=== PATIENT | female | born 1970 | race Caucasian/White ===

== ENCOUNTER 2016-07-03 14:13 | Emergency (ER) | payer OTHER ==
[2016-07-03 14:28] VITALS: BMI 31.0
[2016-07-03] MEDS ORDERED: SODIUM CHLORIDE 1,000 ML IV STA (16:26)
[2016-07-03 17:23] LABS: BASOPHIL 0.8 % (0-2.0); MCH 31.7 pg (25.7-33.7); MCHC 33.9 g/dl (32.0-36.0); MEAN CELL VOLUME 93.5 fl (80-96); MEAN PLT VOLUME 9.5 fl (7.5-11.1); PLATELET COUNT 344 K/MM3 (134-434); RDW 12.4 % (11.6-15.6); WHITE BLOOD COUNT 11.3 K/mm3 (4.0-10.0)
[2016-07-03 17:49] LABS: URINE APPEARANCE SLCLOUDY; URINE BILIRUBIN NEGATIVE (NEGATIVE); URINE BLOOD NEGATIVE (NEGATIVE); URINE COLOR YELLOW; URINE GLUCOSE (UA) 2+ (NEGATIVE); URINE KETONE NEGATIVE (NEGATIVE); URINE LEUK ESTERASE NEGATIVE (NEGATIVE); URINE NITRITE NEGATIVE (NEGATIVE); URINE PROTEIN NEGATIVE (NEGATIVE); URINE UROBILINOGEN NEGATIVE E.U./dl (0.2-1.0)
[2016-07-03 18:01] LABS: ANION GAP 6 (8-16); CALCIUM 9.4 mg/dL (8.5-10.1); CO2 30 mmol/L (21-32); CREATININE 0.7 mg/dL (0.55-1.02); GLUCOSE,RANDOM 102 mg/dL (74-106); SGOT/AST 21 U/L (15-37); SGPT/ALT 31 U/L (12-78)
[2016-07-03 18:03] LABS: ALK PHOS 75 U/L (45-117); BILIRUBIN,TOTAL 0.4 mg/dL (0.2-1.0); TOT PROT 7.4 g/dl (6.4-8.2)
--- NOTE | 2016-07-03 18:06 | PDOC ---
History of Present Illness - General Chief Complaint: Pain Stated Complaint: ABD PAIN, NAUSEA Time Seen by Provider: 07/03/16 16:28 History Source: Patient Exam Limitations: No Limitations - History of Present Illness Initial Comments: 07/03/16 17:33 HPI: This 46 year old female presents with c/o RLQ abd pain that apparently has been going on and off for one year. She states that she is having worsening pain since friday. She had a hysterectomy due to fibroids, left ovarian removed due to cysts and now she's developing right side of pain without fever, n, v, d. Chief Compliant:RLQ pain PMH: fibroids, ovarian cysts, PALA FH: Pt has not recently traveled outside the country in the last 30 days. Pt has not been in contact with people who have traveled out of the country, in contact with people who have been ill with fever, n, v, d. SH: smoking use: NONE illicit drug use: NONE alcohol use: NONE employment/educational status: sexual history: PSH: hysterectomy, left oopherectomy Home med use noted on AUG Allergies:PCN Immunizations: PCP: Dr. Barnett Past History - Past Medical History Allergies/Adverse Reactions: Allergies Allergy/AdvReac Type Severity Reaction Status Date / Time Penicillins Allergy Difficulty Verified 07/03/16 14:28 Breathing Diabetes: Yes HTN: Yes Other medical history: DEAF BOTH EARS--FLORENTIN HEARING AIDS - Surgical History Cholecystectomy: Yes - Psycho/Social/Smoking Cessation Hx Anxiety: No Suicidal Ideation: No Smoking History: Never smoked Hx Alcohol Use: No Drug/Substance Use Hx: No Substance Use Type: None Review of Systems - Review of Systems Able to Perform ROS?: Yes Comments:: 07/03/16 18:06 General statement: "I have worsening pain in the Right side of abd" She is crying. Hematology: neg history of bleeding/blood thinners Skin: Neg for lesions, rash, bruising. HEENT: Neg symptoms Respiratory: Neg SOB or difficulty in breathing Cardiac: Neg chest pain GI: + right lower quad pain, without n/v : Neg problems on voiding MS: Neg for joint pain/stiffness, no edema Neuro: Neg for LOC, weakness, Endocrine: Neg for excess thirst/hunger, cold/heat intolerance, excess sweating Allergies: + for allergies *Physical Exam - Vital Signs Last Vital Signs Temp Pulse Resp BP Pulse Ox 98.2 F 77 20 144/79 98 07/03/16 14:25 07/03/16 14:25 07/03/16 14:25 07/03/16 14:25 07/03/16 14:25 - Physical Exam Comments: 07/03/16 18:07 General Appearance: Iele-fcwf-scd female who appears to be uncomfortable due to pain to the right lower quadrant sitting up crying V/S: hemodynamically stable, afebrile Skin: WNL of pt's skin color, no signs of pallor, mottling, cyanosis Head:symmetrical Eyes: EOM's intact, PERRLA Ears: denies pain Nose: patent Throat: lips, teeth, gums, tongue, buccal mucos pink and moist Lungs: Chest symmetry equal. Cap refill <3 seconds. Lung sounds clear Cardiac: PMI at R 4MCL space, pos S1 and S2, regular rate. Abdomen: Soft, round, positive right lower quadrant tender : Not observed Muscularskeletal: Gait steady, ambulated in to ER, no edema +PMS Neuro: AAOx3, cognitively intact, speech clear and appropriate. ED Treatment Course - LABORATORY CBC & Chemistry Diagram: 07/03/16 17:05 07/03/16 17:05 - RADIOLOGY Radiology Studies Ordered: Category Date Time Status PELVIC / BLADDER US [US] Stat Ultrasound 07/03/16 16:26 Ordered TRANSVAGINAL ULTRASOUND US [US] Stat Ultrasound 07/03/16 16:51 Ordered - Medications Given in the ED: ED Medications Discontinued Medications Generic Name Dose Route Start Last Admin Trade Name Hernánq PRN Reason Stop Dose Admin Sodium Chloride 1,000 mls @ 1,000 mls/hr 07/03/16 16:26 07/03/16 17:10 Normal Saline - IV 07/03/16 17:25 1,000 mls/hr ASDIR STA Administration Medical Decision Making - Medical Decision Making 07/03/16 18:08 Pt initially seen and examined. She is complaining of right lower quadrant abdominal pain. A/P suggestive of right ovarian cyst, torsion 1. labs 2. pain meds 3. urine 4. transvaginal and pelvic u/s 07/03/16 18:16 I am signing this patient out to my colleague: DEMARIO Hernandez In brief, this patient is being seen in the ED for a chief complaint of: right lower quad pain possible ovarian cyst vs, ? appendix, colic, I have completed the initial assessment interview note and have ordered: transvaginal and pelvic u/s, ua, IVF and pain meds. Please call the PCP: Dr. Barnett Plan for disposition is as follows: pending *DC/Admit/Observation/Transfer Diagnosis at time of Disposition: Abdominal pain
[2016-07-03] MEDS ORDERED: OXYCODONE/APAP 5/325MG COMBO TABLET PO ONE (18:09)
[2016-07-03] MEDS ORDERED: OXYCODONE/APAP 5/325MG COMBO TABLET ONE (18:35)
[2016-07-03] MEDS ORDERED: HEMOQUE TEST 1 EACH EACH ONE (18:36)
--- NOTE | 2016-07-03 19:13 | PDOC ---
*Physical Exam - Vital Signs Last Vital Signs Temp Pulse Resp BP Pulse Ox 98.2 F 77 20 144/79 98 07/03/16 14:25 07/03/16 14:25 07/03/16 14:25 07/03/16 14:25 07/03/16 14:25 - Physical Exam Comments: 07/03/16 19:12 Sign-out received from outgoing ER provider Bennett. Pt interviewed and examined. Ancillary studies reviewed. Awaiting transvaginal and pelvic ultrasound results, labs. ED Treatment Course - LABORATORY CBC & Chemistry Diagram: 07/03/16 17:05 07/03/16 17:05 - ADDITIONAL ORDERS Additional order review: Laboratory Results 07/03/16 07/03/16 07/03/16 18:40 17:05 17:05 Sodium 136 Potassium 3.7 Chloride 100 Carbon Dioxide 30 Anion Gap 6 L BUN 20 H Creatinine 0.7 Creat Clearance w eGFR > 60 POC Glucometer 104.84139 Random Glucose 102 Calcium 9.4 Total Bilirubin 0.4 AST 21 ALT 31 Alkaline Phosphatase 75 Total Protein 7.4 Albumin 4.0 Lipase 73 Urine Color Yellow Urine Appearance Slcloudy Urine pH 5.0 Ur Specific [place] 1.030 Urine Protein Negative Urine Glucose (UA) 2+ H Urine Ketones Negative Urine Blood Negative Urine Nitrite Negative Urine Bilirubin Negative Urine Urobilinogen Negative Ur Leukocyte Esterase Negative 07/03/16 07/03/16 18:40 17:05 RBC 4.20 MCV 93.5 MCHC 33.9 RDW 12.4 MPV 9.5 Neutrophils % 53.0 Lymphocytes % 38.5 Monocytes % 6.7 Eosinophils % 1.0 Basophils % 0.8 POC Glucometer 104.96750 - Medications Given in the ED: ED Medications Discontinued Medications Generic Name Dose Route Start Last Admin Trade Name Freq PRN Reason Stop Dose Admin Sodium Chloride 1,000 mls @ 1,000 mls/hr 07/03/16 16:26 07/03/16 17:10 Normal Saline - IV 07/03/16 17:25 1,000 mls/hr ASDIR STA Administration Oxycodone/Acetaminophen 1 combo 07/03/16 18:09 07/03/16 18:38 Percocet 5/325 - PO 07/03/16 18:10 1 combo ONCE ONE Administration *DC/Admit/Observation/Transfer Diagnosis at time of Disposition: Abdominal pain Qualifiers: Abdominal location: right lower quadrant Qualified Code(s): R10.31 - Right lower quadrant pain Cyst of ovary Qualifiers: Laterality: right Qualified Code(s): N83.20 - Unspecified ovarian cysts - Discharge Dispostion Disposition: HOME Condition at time of disposition: Stable - Prescriptions Prescriptions: Ibuprofen 800 mg PO TID PRN #21 tablet PRN Reason: Pain - Referrals Referrals: Stanislaw Barnett MD [Primary Care Provider] - - Patient Instructions Printed Discharge Instructions: DI for Ovarian Cyst Additional Instructions: Please take medication as prescribed. As discussed, please follow up with Dr. Barnett tomorrow morning. If you experience sudden severe pain, vaginal bleeding , nausea, vomiting, diarrhea, fever, chills, or any new or worsening symptoms, please return to the ER. - Post Discharge Activity
[2016-07-03 20:32] VITALS: BP 137/74; PULSE 88; TEMP 98.6
== END 2016-07-03 20:31 | disposition home or self-care (01) ==
LOC: JER 14:13
PROC: 3E0F7GC Introduction of Other Therapeutic Substance into Respiratory Tract, Via Natural or Artificial Opening (ICD-10-PCS; principal; 2016-07-03)
DX: R10.9 Unspecified abdominal pain (principal)
CPT/HCPCS: 36415; 76830-TC; 76856-TC; 80053; 81003; 83690; 85025; 99283-25

== ENCOUNTER 2016-07-04 16:27 | Emergency (ER) | payer OTHER ==
[2016-07-04 16:41] VITALS: BMI 31.0
[2016-07-04] MEDS ORDERED: ONDANSETRON 4 MG/2 ML VIAL IVPB ONE (19:34)
[2016-07-04] MEDS ORDERED: morphine CARPU-JECT 4 MG/1 ML DISP.SYRIN IVPUSH ONE (19:34)
--- NOTE | 2016-07-04 19:36 | PDOC ---
History of Present Illness - General Chief Complaint: Pain Stated Complaint: PCP SENT/CT SCAN Time Seen by Provider: 07/04/16 19:03 History Source: Patient, Significant Other Exam Limitations: Other (Hearing impairment) - History of Present Illness Travel History: No Initial Comments: 07/04/16 21:34 46yo Female patient presents to ED c/o RLQ abd pain. Patient states she was seen here in this ED for same pain, ultrasound done to r/o ruptured ovarion cyst or torsion. Patient f/u with PCP who requested that she return to ED to r/ o appendicitis. Patient reports nausea & vomiting with upper back pain that began last week. Denies hematuria, fever, vaginal bleeding, CP, diff breathing, or any other complaints at this time. Timing/Duration: reports: getting worse Quality: reports: moderate Abdominal Pain Onset Location: reports: RLQ Pain Radiation: reports: back Activities at Onset: reports: none Treatment Prior to Arrive: worse with: analgesics, antacids, cold pack, heat, laxative, enema, other Aggravating Factors: worse with: None, Defecation, Eating, Emotional upset, Exertion, [place], Movement, Voiding, Change in position Alleviating Factors: worse with: None, Belching, Shallow Breathing, Defecation, Eating, Holding Breath, Passing Gas, Change in Position, Rest, Voiding, Vomiting Past History - Travel Traveled outside of the country in the last 30 days: No Close contact w/someone who was outside of country & ill: No - Past Medical History Allergies/Adverse Reactions: Allergies Allergy/AdvReac Type Severity Reaction Status Date / Time Penicillins Allergy Difficulty Verified 07/04/16 16:41 Breathing Home Medications: Ambulatory Orders Ibuprofen 800 mg PO TID PRN #21 tablet 07/03/16 Oxycodone HCl/Acetaminophen [Percocet 5-325 mg Tablet] 1 tab PO Q6H PRN #20 tablet MDD 4 tabs 07/05/16 CVA: Yes Diabetes: Yes HTN: Yes - Surgical History Cholecystectomy: Yes - Psycho/Social/Smoking Cessation Hx Anxiety: No Suicidal Ideation: No Smoking History: Never smoked Information on smoking cessation initiated: No Hx Alcohol Use: No Drug/Substance Use Hx: No Substance Use Type: None Abd/GI Specific PMHX - Complaint Specific PMHX Colitis: No Diverticulitis: No Gall Bladder Disease: No GERD: No Hepatitis: No Irritable Bowel Synd (IBS): No Pancreatitis: No GI Ulcer Disease: No Review of Systems - Review of Systems Able to Perform ROS?: Yes Is the patient limited Vincentian proficient: No Constitutional: No: Chills, Fever HEENTM: No: Nose Congestion Respiratory: No: Cough, Shortness of Breath, Stridor, Wheezing Cardiac (ROS): No: Chest Pain, Edema, Palpitations, Chest Tightness ABD/GI: Yes: Nausea, Vomiting, Other (RLQ Abd Pain). No: Constipated, Diarrhea : Yes: Frequency, Urgency. No: Burning, Dysuria, Discharge Musculoskeletal: Yes: Back Pain. No: Muscle Pain Integumentary: No: Bruising, Erythema, Rash Neurological: No: Headache, Seizure, Ataxia, Dizziness All Other Systems: Reviewed and Negative *Physical Exam - Vital Signs Last Vital Signs Temp Pulse Resp BP Pulse Ox 98 F 80 18 102/61 100 07/04/16 16:36 07/04/16 16:36 07/04/16 16:36 07/04/16 16:36 07/04/16 16:36 - Physical Exam General Appearance: Yes: Nourished, Appropriately Dressed, Mild Distress HEENT: positive: EOMI, JOSEPH, Normal ENT Inspection, Normal Voice, Symmetrical, Pharynx Normal Neck: positive: Trachea midline, Supple. negative: Stridor Respiratory/Chest: positive: Lungs Clear, Normal Breath Sounds. negative: Respiratory Distress, Accessory Muscle Use, Labored Respiration Cardiovascular: positive: Regular Rhythm, Regular Rate. negative: Bradycardia, Tachycardia Gastrointestinal/Abdominal: positive: Tender (RLQ), Soft, Decreased BS, Tenderness. negative: Distended, Guarding, Rebound Lymphatic: negative: Adenopathy Musculoskeletal: positive: Normal Inspection. negative: CVA Tenderness Extremity: positive: Normal Capillary Refill, Normal Inspection, Normal Range of Motion Integumentary: positive: Normal Color, Dry, Warm. negative: Cyanotic, Pale, Cold, Clammy Neurologic: positive: technician biological health II-XII NML intact, Fully Oriented, Alert, Normal Mood/ Affect, Normal Response, Motor Strength 5/5 ED Treatment Course - LABORATORY CBC & Chemistry Diagram: 07/04/16 19:02 07/04/16 19:02 - RADIOLOGY Radiology Studies Ordered: Category Date Time Status ABDOMEN & PELVIS CT WITH CONTR [CT] Stat CT Scan 07/04/16 19:34 Ordered *DC/Admit/Observation/Transfer Diagnosis at time of Disposition: Ovarian cyst Qualifiers: Laterality: right Qualified Code(s): N83.20 - Unspecified ovarian cysts Abdominal pain Qualifiers: Abdominal location: right lower quadrant Qualified Code(s): R10.31 - Right lower quadrant pain - Discharge Dispostion Disposition: HOME Condition at time of disposition: Good Admit: No - Prescriptions Prescriptions: Oxycodone HCl/Acetaminophen [Percocet 5-325 mg Tablet] 1 tab PO Q6H PRN #20 tablet MDD 4 tabs PRN Reason: Severe Pain - Patient Instructions Printed Discharge Instructions: Ovarian Cyst Removal -- Open Surgery, Ovarian Cyst Additional Instructions: FOLLOW UP WITH YOUR ASSISTANT PROFESSOR OF SPANISH OR PCP. CALL TO SCHEDULE APPOINTMENT DISCUSSED. TAKE MEDICATIONS PRESCRIBED. DO NOT DRIVE, DRINK ALCOHOL, OR OPERATE HEAVY MACHINERY WHILE TAKING PERCOCET. CONTINUE MOTRIN USE. Print Language: TURKISH - Post Discharge Activity Work/School Note: Back to Work
[2016-07-04] MEDS ORDERED: ONDANSETRON 4 MG/2 ML VIAL ONE (19:40)
[2016-07-04] MEDS ORDERED: morphine CARPU-JECT 4 MG/1 ML DISP.SYRIN ONE (19:40)
[2016-07-04 20:08] LABS: BASOPHIL 0.7 % (0-2.0); EOSINOPHIL 0.9 % (0-4.5); MCH 31.4 pg (25.7-33.7); MCHC 33.5 g/dl (32.0-36.0); MEAN CELL VOLUME 93.9 fl (80-96); MEAN PLT VOLUME 10.4 fl (7.5-11.1); NEUTROPHILS 48.5 % (42.8-82.8); PLATELET COUNT 309 K/MM3 (134-434); RDW 12.8 % (11.6-15.6); WHITE BLOOD COUNT 10.9 K/mm3 (4.0-10.0)
[2016-07-04 20:27] LABS: ALBUMIN 3.9 g/dl (3.4-5.0); ALK PHOS 76 U/L (45-117); ANION GAP 7 (8-16); BILIRUBIN,TOTAL 0.2 mg/dL (0.2-1.0); CALCIUM 9.5 mg/dL (8.5-10.1); CO2 32 mmol/L (21-32); CREATININE 0.7 mg/dL (0.55-1.02); GLUCOSE,RANDOM 97 mg/dL (74-106); SGOT/AST 19 U/L (15-37); SGPT/ALT 31 U/L (12-78); TOT PROT 7.4 g/dl (6.4-8.2)
--- NOTE | 2016-07-04 20:28 | PDOC ---
*Physical Exam - Vital Signs Last Vital Signs Temp Pulse Resp BP Pulse Ox 98 F 80 18 102/61 100 07/04/16 16:36 07/04/16 16:36 07/04/16 16:36 07/04/16 16:36 07/04/16 16:36 - Physical Exam Comments: 07/04/16 20:27 The patient was examined by DEMARIO Velasquez under my direct supervision. I personally evaluated the patient. I concur with the above findings and the plan of care. ED Treatment Course - LABORATORY CBC & Chemistry Diagram: 07/04/16 19:02 07/04/16 19:02 - ADDITIONAL ORDERS Additional order review: Laboratory Results 07/04/16 19:05 Urine HCG, Qual Negative 07/04/16 19:02 RBC 4.25 MCV 93.9 MCHC 33.5 RDW 12.8 MPV 10.4 Neutrophils % 48.5 Lymphocytes % 42.5 H Monocytes % 7.4 Eosinophils % 0.9 Basophils % 0.7 - Medications Given in the ED: ED Medications Discontinued Medications Generic Name Dose Route Start Last Admin Trade Name Rosemary PRN Reason Stop Dose Admin Morphine Sulfate 4 mg 07/04/16 19:34 07/04/16 19:46 Morphine Injection - IVPUSH 07/04/16 19:35 4 mg ONCE ONE Administration Ondansetron HCl 4 mg 07/04/16 19:34 07/04/16 19:46 Zofran Injection IVPB 07/04/16 19:35 4 mg ONCE ONE Administration *DC/Admit/Observation/Transfer Diagnosis at time of Disposition: Ovarian cyst, Abdominal pain - Discharge Dispostion Disposition: HOME Condition at time of disposition: Stable - Prescriptions Prescriptions: Oxycodone HCl/Acetaminophen [Percocet 5-325 mg Tablet] 1 tab PO Q6H PRN #20 tablet MDD 4 tabs PRN Reason: Severe Pain - Referrals Referrals: Birgit Easley MD [Primary Care Provider] - - Patient Instructions Printed Discharge Instructions: Ovarian Cyst, Ovarian Cyst Removal -- Open Surgery Additional Instructions: FOLLOW UP WITH YOUR FIREARMS EXPERT OR PCP. CALL TO SCHEDULE APPOINTMENT DISCUSSED. TAKE MEDICATIONS PRESCRIBED. DO NOT DRIVE, DRINK ALCOHOL, OR OPERATE HEAVY MACHINERY WHILE TAKING PERCOCET. CONTINUE MOTRIN USE. Print Language: IRISH - Post Discharge Activity Work/School Note: Back to Work
[2016-07-04 21:04] LABS: URINE APPEARANCE CLOUDY; URINE BILIRUBIN NEGATIVE (NEGATIVE); URINE BLOOD NEGATIVE (NEGATIVE); URINE COLOR YELLOW; URINE GLUCOSE (UA) NEGATIVE (NEGATIVE); URINE KETONE TRACE (NEGATIVE); URINE LEUK ESTERASE NEGATIVE (NEGATIVE); URINE NITRITE NEGATIVE (NEGATIVE); URINE UROBILINOGEN NEGATIVE E.U./dl (0.2-1.0)
[2016-07-04 21:25] LABS: URINE PROTEIN 1+ (NEGATIVE)
[2016-07-04 21:40] LABS: URINE BACTERIA MODERATE /hpf (NONE SEEN); URINE MUCUS FEW; URINE RBC 4 /hpf (0-3); URINE WBC 3 /hpf (3-5)
[2016-07-05 00:32] VITALS: BP 131/77; PULSE 71; TEMP 97.5
--- NOTE | 2016-07-05 15:28 | EKG ---
Test Reason : Blood Pressure : / mmHG Vent. Rate : 061 BPM Atrial Rate : 061 BPM P-R Int : 146 ms QRS Dur : 078 ms QT Int : 456 ms P-R-T Axes : 037 -02 018 degrees QTc Int : 459 ms NORMAL SINUS RHYTHM CANNOT RULE OUT SEPTAL INFARCT , AGE UNDETERMINED Confirmed by MARY MORALES MD ([id number]) on 07/05/2016 3:28:13 PM Referred By: Confirmed By:MARY MORALES MD
== END 2016-07-05 00:33 | disposition home or self-care (01) ==
LOC: JER 16:27
PROC: 3E033NZ Introduction of Analgesics, Hypnotics, Sedatives into Peripheral Vein, Percutaneous Approach (ICD-10-PCS; principal; 2016-07-04)
PROC: 3E033GC Introduction of Other Therapeutic Substance into Peripheral Vein, Percutaneous Approach (ICD-10-PCS; 2016-07-04)
DX: N83.291 Other ovarian cyst, right side (principal); I10 Essential (primary) hypertension; E11.9 Type 2 diabetes mellitus without complications; Z86.73 Personal history of transient ischemic attack (TIA), and cerebral infarction without residual deficits
CPT/HCPCS: 36415; 74177-TC; 80053; 81003; 81015; 84703; 85025; 93005; 93010; 99283-25; Q9967

== ENCOUNTER 2016-07-29 12:30 | Day surgery (SDC) | payer OTHER ==
[2016-07-26 12:32] VITALS: BMI 31.0
[2016-07-29] MEDS ORDERED: BUPIVACAINE HCL/PF 0.5% (5MG/ML) 10 ML VIAL ONE (13:04)
[2016-07-29 13:40] LABS: INR 1.08 (0.82-1.09); PROTHROMBIN TIME (PATIENT) 11.9 SEC (9.98-11.88)
[2016-07-29 13:43] LABS: ACTIVATED PTT 35.7 SECONDS (26.9-34.4)
[2016-07-29] MEDS ORDERED: PROPOFOL 20 ML ONE (13:46)
[2016-07-29] MEDS ORDERED: ROCURONIUM BROMIDE 50 MG/5 ML VIAL ONE (13:46)
[2016-07-29] MEDS ORDERED: SUCCINYLCHOLINE CHLORIDE 200 MG/10 ML VIAL ONE (13:46)
[2016-07-29] MEDS ORDERED: LIDOCAINE HCL/PF 2% SDV 5ML VIAL ONE (13:46)
[2016-07-29] MEDS ORDERED: CLINDAMYCIN PHOSPHATE 600 MG/4 ML VIAL IVPB ONE (14:09)
[2016-07-29] MEDS ORDERED: METHYLENE BLUE 1% 10 MG/1 ML VIAL ONE (15:12)
[2016-07-29] MEDS ORDERED: METHYLENE BLUE 1% 10 MG/1 ML VIAL IVPUSH ONE (15:14)
[2016-07-29] MEDS ORDERED: GLYCOPYRROLATE 0.2 MG/1 ML VIAL ONE ×2 (16:21)
[2016-07-29] MEDS ORDERED: NEOSTIGMINE METHYLSULFATE 0.5 MG/ML - 10 ML MDV ONE (16:21)
[2016-07-29] MEDS ORDERED: CLINDAMYCIN PHOSPHATE 600 MG/4 ML VIAL ONE (16:21)
[2016-07-29] MEDS ORDERED: IBUPROFEN 800 MG/8 ML IJ IVPB PRN (16:33)
[2016-07-29] MEDS ORDERED: ONDANSETRON 4 MG/2 ML VIAL IVPB PRN (16:33)
[2016-07-29] MEDS ORDERED: oxyCODONE HCL 5 MG TABLET PO PRN ×2 (16:33→16:49)
[2016-07-29] MEDS ORDERED: IBUPROFEN 600 MG TABLET (FP) PO PRN (16:33)
--- NOTE | 2016-07-29 16:42 | HP ---
Past Medical History - Primary Care Physician PCP:: Bhargav Buenrostro (pelvic pain ) - Admission Chief Complaint: RLQ pain , RT ovarian cyst History of Present Illness: 46 yo f with hx of AMARILIS ,RSO c/o of severe RLQ pain, which has been worsen for past few month , sono showed complex RT ovarian cyst , pt has elected to have oophorectomty. risk of procedure including injury to bowel, bladder, ureter , vesselsanesthesia risk, post op pain and DVT, infection, bleeding, discussed, fully aware of all risks History Source: Patient Limitations to Obtaining History: No Limitations - Past Medical History Musculoskeletal: Yes: Other (lumbar, cervical discs) - Past Surgical History Hx Myomectomy: No Hx Transabdominal Cerclage: No - Smoking History Smoking history: Never smoked - Alcohol/Substance Use Hx Alcohol Use: Yes (OCCAS) - Social History History of Recent Travel: No Home Medications - Allergies Allergies/Adverse Reactions: Allergies Allergy/AdvReac Type Severity Reaction Status Date / Time Penicillins Allergy Difficulty Verified 07/29/16 13:05 Breathing - Home Medications Home Medications: Ambulatory Orders Insulin Glargine,Hum.rec.anlog [Lantus (nf)] 20 units SQ HS 07/26/16 Insulin Lispro [Humalog] 12 unit SQ TID 07/26/16 Tramadol HCl 50 mg PO PRN 07/26/16 Valsartan [Diovan] 40 mg PO DAILY 07/26/16 Review of Systems - Review of Systems Constitutional: reports: No Symptoms Eyes: reports: No Symptoms HENT: reports: No Symptoms Neck: reports: No Symptoms Cardiovascular: reports: No Symptoms Respiratory: reports: No Symptoms Gastrointestinal: reports: Abdominal Pain Endocrine: reports: No Symptoms Physical Exam-PRECISION DYER Vital Signs: Vital Signs Temperature 98.1 F 07/29/16 13:07 Pulse Rate 78 07/29/16 13:07 Respiratory Rate 16 07/29/16 13:07 Blood Pressure 134/90 07/29/16 13:07 O2 Sat by Pulse Oximetry (%) 98 07/29/16 13:07 Constitutional: Yes: Well Nourished, No Distress, Calm Eyes: Yes: WNL, Conjunctiva Clear, EOM Intact HENT: Yes: WNL, Atraumatic, Normocephalic Neck: Yes: WNL, Supple, Trachea Midline Cardiovascular: Yes: WNL, Regular Rate and Rhythm Respiratory: Yes: WNL, Regular, CTA Bilaterally Gastrointestinal: Yes: WNL ...Rectal Exam: Yes: WNL Renal/: Yes: WNL Vaginal Exam: Yes: Normal Cervix: Yes: Normal Uterus: Yes: Other (surgically removed) Adnexa: Tender: Right Breast(s): Yes: WNL Musculoskeletal: Yes: WNL Extremities: Yes: WNL Edema: No Integumentary: Yes: WNL Neurological: Yes: WNL, Alert, Oriented ...Motor Strength: WNL Psychiatric: Yes: WNL, Alert, Oriented Problem List - Problem (1) RLQ abdominal pain Code(s): R10.31 - RIGHT LOWER QUADRANT PAIN (2) Right ovarian cyst Code(s): N83.20 - UNSPECIFIED OVARIAN CYSTS * DO NOT USE * (3) Diabetes Code(s): E11.9 - TYPE 2 DIABETES MELLITUS WITHOUT COMPLICATIONS Qualifiers: Diabetes mellitus type: type 1 Assessment/Plan laproscopic RT oophorectomy, possible laparotomy, risks discussed, ulternative and no tx explained
[2016-07-29] MEDS ORDERED: ONDANSETRON 4 MG/2 ML VIAL IVPUSH PRN (16:49)
[2016-07-29] MEDS: ELECTROLYTE-148 SOLN 1,000 ML IV SCH (18:40)
[2016-07-29] MEDS ORDERED: ALPRAZolam 0.25 MG TABLET PO ONE (22:15)
[2016-07-29] MEDS ORDERED: INSULIN (NOVOLOG) ASPART 100 UNITS/ML 10ML VIAL ONE (23:59)
[2016-07-30] MEDS: INSULIN SLIDING SCALE (NOVOLOG) 1 VIAL SQ SCH ×4 (00:01→17:28)
[2016-07-30] MEDS: ELECTROLYTE-148 SOLN 1,000 ML IV SCH (03:05)
[2016-07-30] MEDS ORDERED: INSULIN (NOVOLOG) ASPART 100 UNITS/ML 10ML VIAL ONE (06:04)
[2016-07-30] MEDS: INSULIN (NOVOLOG) ASPART 100 UNITS/ML 10ML VIAL SQ SCH ×3 (08:51→17:28)
[2016-07-30] MEDS ORDERED: ALPRAZolam 0.25 MG TABLET PO SCH (10:00)
[2016-07-30] MEDS ORDERED: VALSARTAN 40 MG TABLET (FP) PO SCH (10:00)
[2016-07-30 13:47] LABS: BASOPHIL 0.7 % (0-2.0); EOSINOPHIL 0.2 % (0-4.5); MCH 31.4 pg (25.7-33.7); MCHC 33.9 g/dl (32.0-36.0); MEAN CELL VOLUME 92.8 fl (80-96); MEAN PLT VOLUME 9.6 fl (7.5-11.1); NEUTROPHILS 69.1 % (42.8-82.8); PLATELET COUNT 248 K/MM3 (134-434); RDW 12.2 % (11.6-15.6)
[2016-07-30 14:21] VITALS: BP 110/58; TEMP 98
[2016-07-30 14:45] LABS: CALCIUM 8.9 mg/dL (8.5-10.1); CREATININE 0.8 mg/dL (0.55-1.02)
--- NOTE | 2016-07-30 15:29 | EKG ---
Test Reason : Blood Pressure : / mmHG Vent. Rate : 064 BPM Atrial Rate : 064 BPM P-R Int : 148 ms QRS Dur : 084 ms QT Int : 428 ms P-R-T Axes : 038 005 072 degrees QTc Int : 441 ms NORMAL SINUS RHYTHM NORMAL ECG WHEN COMPARED WITH ECG OF 04-JUL-2016 20:29, LIKELY NO SIGNIFICANT CHANGES Confirmed by VIVIAN GALLEGO MD ([id number]) on 07/30/2016 3:29:20 PM Referred By: Bhargav Buenrostro Confirmed By:VIVIAN GALLEGO MD
[2016-07-30 18:07] VITALS: PULSE 72
--- NOTE | 2016-07-30 19:56 | OP ---
DATE OF OPERATION: 07/29/2016 PREOPERATIVE DIAGNOSIS: Right ovarian cyst, pelvic pain. POSTOPERATIVE DIAGNOSIS: Right ovarian cyst, pelvic pain. PROCEDURE: Laparoscopic right salpingo-oophorectomy with lysis of pelvic adhesions. SURGEON: Bhargav Buenrostro MD LAMINATION INSPECTOR: Stanislaw Barnett MD ANESTHESIA: General. ESTIMATED BLOOD LOSS: 150 mL. OPERATION: The patient was taken to the operating room under adequate general anesthesia in dorsal lithotomy position. Examination under anesthesia was normal. Then a Ambriz catheter was inserted and then a sponge with a ring forceps was placed into the vagina for manipulation. Then patient was prepped and draped in dorsal lithotomy position. A small infraumbilical skin incision was made. Veress needle was introduced, pneumoperitoneum established, and then scope was introduced. Then under direct vision, a 5-mm trocar was introduced through the left hypogastric area and then a 10-mm trocar to the right hypogastric area. There were some omental adhesions to the anterior abdominal wall, which was grasped with a LigaSure cautery, cauterized and cut, and the adhesions were released. The left ovary and the uterus were absent. The right ovary had a multicystic cyst approximately 5 to 7 cm with irregular surface and also the appearance of endometrioma was seen with also a chocolate fixed cyst collection in the posterior cul-de-sac area to the right of the pelvic sidewall. Then pelvic washing was done and then the cyst was grasped with a grasper and then the adhesions to the pelvic sidewall were lysed meticulously with Endo Woo and bipolar cautery and the ovary was released from the pelvic sidewall. Then infundibulopelvic ligament was identified and grasped with bipolar cautery, cauterized and cut. Then along the posterior part of the ovary was grasped with a bipolar cautery, cauterized and cut. Until the ovarian ligament was reached. At this time, ovarian ligament was grasped, cauterized and cut and the specimen was removed from the uterus and then put in the cul-de-sac area. Then pelvic cavity several times irrigated. There was a small amount of oozing from the pelvic sidewall and the pelvic floor where the cyst was dissected but no active bleeding was seen. There was oozing. At this time again pelvic cavity irrigated and then the specimen was put in the Endobag and removed in its entirety. Then FloSeal was applied over the pelvic floor and pelvic sidewall. Hemostasis was established. Then the 10-mm trocar site was closed with interrupted suture of 0 Vicryl and the fascia were brought together, and checked, there was no defect. Then subcutaneous fat with interrupted suture of 0 Vicryl, and then skin. Abdomen was emptied of all the gases, instruments withdrawn, and the skin was closed with 4-0 Biosyn interrupted suture. Patient tolerated procedure well, left the OR in good condition. Contreras [id number]
[2016-07-30] MEDS ORDERED: INSULIN DETEMIR 100 UNITS/ML MDV SQ SCH (22:00)
--- NOTE | 2016-07-31 15:28 | PATH ---
Surgical Pathology Report Patient Name: SONALI THOMAS [facility]. Rec. #: [id number] /Age/Gender: 1970 (Age: 46) / F Account: [id number] Location: AMBULATORY SURG Taken: 07/29/2016 Received: 07/30/2016 Reported: 07/31/2016 Physicians: Bhargav Buenrostro M.D. Specimen(s) Received RIGHT OVARY & FALLOPIAN TUBE Clinical History Right unspecified ovarian cyst Final Diagnosis OVARY AND FALLOPIAN TUBE, RIGHT, SALPINGO-OOPHORECTOMY: OVARY WITH BENIGN PAPILLARY SEROUS CYSTADENOFIBROMA AND CYSTIC FOLLICLES. FALLOPIAN TUBE WITH DENSE TUBO-OVARIAN ADHESIONS. Electronically Signed Tyler Jensen M.D. Gross Description Received in formalin, labeled "right ovary and fallopian tube" are 6 irregular, unoriented portions of soft tissue ranging from 1.0 x 0.9 x 0.4 cm to 6.0 x 3.0 x 2.7 cm, consistent with portions of a disrupted ovarian cyst. The largest portion displays an attached 3 cm in length the fimbriated fallopian tube. The outer surface of the tube is ewing-johnson and smooth with focal tubal ovarian adhesions. Sectioning reveals an unremarkable fallopian tube lumen. The outer surface of the ovary is ewing-jaimes. No excrescences are identified. Sectioning reveals multiloculated cystic architecture with both mucinous and serous components. Soiled Linen Distributor sections are submitted in 12 cassettes as follows: 1-fimbria; 2-3-cross sections of fallopian tube; 4-5-smaller cyst fragments; 4-70-lhyiswremqvkgc sections of ovary. 07/30/201607/30/2016
--- NOTE | 2016-07-31 15:29 | PATH ---
Cytology Non-Gynecological Report Patient Name: SONALI THOMAS [facility]. Rec. #: [id number] /Age/Gender: 1970 (Age: 46) / F Account: [id number] Location: AMBULATORY SURG Taken: 07/29/2016 Received: 07/29/2016 Reported: 07/31/2016 Physicians: Bhargav Buenrostro M.D. Specimen(s) Received PELVIC WASHINGS Clinical History Right ovarian cyst Final Diagnosis PELVIC WASHINGS: SATISFACTORY FOR EVALUATION. NO MALIGNANT CELLS IDENTIFIED. SCATTERED MESOTHELIAL AND INFLAMMATORY CELLS. Comment: Refer to [id number] for the surgical pathology results. Electronically Signed Tyler Jensen M.D. Gross Description Received is 30 cc of clear fluid fresh. Two cytofunnel slides are made.
== END 2016-07-30 18:11 | disposition home or self-care (01) ==
LOC: JASU-SURG 12:30 → JASUSAT 12:30 → J6S 18:30 → JASUSAT 07-30 18:11
PROVIDERS: ATTEND Obstetrics & Gynecology
PROC: 0UB54ZZ Excision of Right Fallopian Tube, Percutaneous Endoscopic Approach (ICD-10-PCS; 2016-07-29)
PROC: 0UB04ZZ Excision of Right Ovary, Percutaneous Endoscopic Approach (ICD-10-PCS; principal; 2016-07-29 14:00)
DX: N83.201 Unspecified ovarian cyst, right side (principal); N73.6 Female pelvic peritoneal adhesions (postinfective)
CPT/HCPCS: 36415; 71020-TC; 80048; 84703; 85025; 85610; 85730; 88108; 88307-TC; 93005; 93010; 93970-TC; 94010; 94760